=== PATIENT | female | born 1945 | race Caucasian/White ===

== ENCOUNTER 2023-04-13 22:32 | Inpatient (IN) | payer MEDICARE, OTHER ==
[~2023-04-13] VITALS: Ht 149.9 cm; Wt 50.3 kg
--- NOTE | 2023-04-13 22:45 | NUR ---
[facility]FULL[facility], NAUSEA AND CONSTIPATION. PT IS AAO X 4, BREATHING UNLABORED, SATURATION AT 99% ON ROOM AIR. PT STATES SHE GETS NAUSEATED AFTER ABOUT 3 BITES SO SHE THINKS SHE MAY HAVE LOST WEIGHT. PT ATTACHED TO MONITOR AND PULSE OX. AWAITING MD ELIZABETH.
--- NOTE | 2023-04-13 22:55 | NUR ---
urine collected, sent to lab
--- NOTE | 2023-04-13 22:57 | NUR ---
Oil Refinery Process Technician at bedside
[2023-04-13 23:39] LABS: BILIRUBIN,URINE NEGATIVE (NEGATIVE); COLOR,URINE YELLOW (YELLOW); LEUKOCYTE ESTERASE ,URINE 1+ (NEGATIVE); NITRITE, URINE NEGATIVE (NEGATIVE); PH,URINE 5.5 (5.0-8.0); PROTEIN,URINE NEGATIVE (NEGATIVE); UGLUCOSE NEGATIVE (NEGATIVE); UROBILINOGEN,URINE 0.2 EU/dL (0.2)
[2023-04-13 23:39] LABS: BASOPHILS # (AUTO) 0.1 K/uL (0.0-0.2); BASOPHILS % (AUTO) 1.2 % (0.0-2.0); EOSINOPHILS % (AUTO) 3.5 % (0.0-6.0); HEMATOCRIT 35 % (33-45); HEMOGLOBIN 11.4 g/dL (11.5-14.8); LYMPHOCYTES # (AUTO) 1.1 K/uL (0.8-4.8); LYMPHOCYTES % (AUTO) 21.5 % (20.0-44.0); MEAN CORPUSCULAR HGB CONC 33 g/dl (31.0-36.0); MEAN CORPUSCULAR VOLUME 87 fL (82-100); MONOCYTES # (AUTO) 0.5 K/uL (0.1-1.30); MONOCYTES % (AUTO) 9.3 % (2.0-12.0); NEUTROPHILS # (AUTO) 3.3 K/uL (1.8-8.9); NEUTROPHILS % (AUTO) 64.5 % (43.0-81.0); PLATELET COUNT (AUTO) 229 K/uL (150-450); RED BLOOD CELL COUNT(AUTO) 3.97 MIL/uL (4.0-5.2); WHITE BLOOD COUNT (AUTO) 5.1 K/uL (4.3-11.0)
[2023-04-13 23:46] LABS: CALCIUM, SERUM 9.4 mg/dL (8.5-10.1); CARBON DIOXIDE 24 mmol/L (21-32); CHLORIDE 102 mmol/L (98-107); CREATININE 1.6 mg/dL (0.6-1.3); GLUCOSE 106 mg/dL (74-106); POTASSIUM 4.6 mmol/L (3.5-5.1); SODIUM SERUM 138 mmol/L (136-145); UREA NITROGEN, BLOOD 62 mg/dL (7-18)
[2023-04-13 23:46] LABS: BACTERIA,URINE None seen /HPF (None Seen)
[2023-04-13] MEDS ORDERED: CEFTRIAXONE 1GM BAG (ER ONLY) 50 ML IV ONE (23:55)
[2023-04-14] MEDS ORDERED: CEFTRIAXONE 1GM BAG (ER ONLY) 1 GM/50 ML PIGGYBACK IV ONE
[2023-04-14 00:02] LABS: ALANINE AMINOTRANSFERASE 27 U/L (12-78); ALBUMIN 3.4 g/dL (3.4-5.0); ALKALINE PHOSPHATASE 98 U/L (46-116); ASPARTATE AMINOTRANSFERASE 47 U/L (15-37); BILIRUBIN,DIRECT 0.1 mg/dL (0.0-0.2); BILIRUBIN,TOTAL 0.6 mg/dL (0.2-1.0); LIPASE 187 U/L (73-393); TOTAL PROTEIN, SERUM 7.7 g/dL (6.4-8.2)
[2023-04-14] MEDS ORDERED: KETOROLAC TROMETHAMINE INJ 30 MG/ML VIAL IV ONE (00:30)
[2023-04-14] MEDS ORDERED: KETOROLAC TROMETHAMINE 15 MG/ML VIAL ONE (00:33)
--- NOTE | 2023-04-14 01:14 | NUR ---
MOVE SHEET GIVEN TO ADMITTING
[2023-04-14] MEDS ORDERED: IV NS 0.9% 1,000 ML IV ONE (01:30)
[2023-04-14] MEDS ORDERED: hydrALAZINE HCL IV 20 MG VIAL IV PRN (02:30)
[2023-04-14] MEDS ORDERED: ACETAMINOPHEN 325 MG TABLET PO PRN (02:30)
[2023-04-14] MEDS ORDERED: MORPHINE SULFATE INJ 2 MG/ML DISP.SYRIN IV PRN ×2 (02:30→07:00)
--- NOTE | 2023-04-14 03:18 | NUR ---
RM 313-2
--- NOTE | 2023-04-14 03:28 | NUR ---
REPORT GIVEN TO RN MAY
--- NOTE | 2023-04-14 03:43 | NUR ---
pt taken to ct via kirstin
--- NOTE | 2023-04-14 04:22 | NUR ---
PT TRANSFERRED TO MS 313-2 VIA BLS PROTOCOL. VS WNL.
[2023-04-14 04:45] VITALS: BP 153/81; TEMP 98.4; O2SAT 100
--- NOTE | 2023-04-14 04:45 | NUR ---
MS ADVERTISING SALES ASSISTANT NOTE PATIENT IS BEING TRANSPORTED TO THE UNIT FROM ER ON A GURNEY. SHE IS ON RA, TOLERATED WELL. NO S/S OF DISTRESS OR SOB. PT IS ALERT AND ORIENTED, AO X 4. SHE HAS IV ACCESS AT HER R FA, #24G, SL. FLUSHED WELL WITH 10 CC OF NS. PT DENIES OF HAVING PAIN AT THIS MOMENT. SAFETY MEASURES ARE IN PLACED: BED IN LOWEST AND LOCKED POSITION; SIDE RAILS UP X 2; CALL LIGHT AND TABLE ARE IN REACH. WILL CONTINUE MONITORING THE PT AND PROVIDE THE CARE PT NEEDS.
[2023-04-14] MEDS: IV NS 0.9% 1,000 ML IV SCH ×2 (07:02→16:02)
[2023-04-14] MEDS: ZOSYN IVPB 2.25 G in IV D5W 50ml IV SCH ×3 (07:15→21:12)
--- NOTE | 2023-04-14 07:25 | NUR ---
MS RN OPENING NOTES RECEIVED PATIENT IN BED AWAKE AND VERBALLY RESPONSIVE . ON RA, TOLERATED WELL. NO S/S OF DISTRESS OR SOB. PT IS AO X 4. NO C/O OF PAIN AND DISCOMFORT SHE HAS IV ACCESS AT HER R FA, #24G, WITRH NS @ 75 ML / HR . IV SITE IS PATENT AND INTACT . SAFETY MEASURES ARE IN PLACED: BED IN LOWEST AND LOCKED POSITION; SIDE RAILS UP X 2; CALL LIGHT AND TABLE ARE IN REACH. WILL CONTINUE TO MONITOR .
--- NOTE | 2023-04-14 07:33 | NUR ---
MS RN CLOSING NOTE PATIENT IS RESTING IN BED. SHE IS ON RA, TOLERATED WELL. NO S/S OF DISTRESS OR SOB. PT IS AWAKE, ALERT AND ORIENTED, AO X 4. SHE HAS IV ACCESS AT HER R FA, #24G, INFUSING ANTIBIOTICS NOW. IV SITE IS PATENT AND INTACT. PT DENIES OF HAVING PAIN AT THIS MOMENT. SAFETY MEASURES ARE IN PLACED: BED IN LOWEST AND LOCKED POSITION; SIDE RAILS UP X 2; CALL LIGHT AND TABLE ARE IN REACH. WILL ENDORSE NEXT SHIFT NURSE FOR CONTINUING PT CARE.
[2023-04-14 08:44] VITALS: BP_SYST 131; BP_SYST 132; BP_DIAS 65; BP_DIAS 72; TEMP 97.8; TEMP 98.4; O2SAT 100; O2SAT 96
[2023-04-14] MEDS ORDERED: PANTOPRAZOLE 40 MG VIAL IV SCH (11:00)
[2023-04-14 16:57] VITALS: BP 121/61; TEMP 97.5; O2SAT 97
--- NOTE | 2023-04-14 18:36 | NUR ---
MS RN CLOSING NOTES PATIENT IN BED AWAKE AND VERBALLY RESPONSIVE . ON RA, TOLERATED WELL. NO S/S OF DISTRESS OR SOB. PT IS AO X 4. NO C/O OF PAIN AND DISCOMFORT SHE HAS IV ACCESS AT HER R FA, #24G, WITH NS @ 75 ML / HR . IV SITE IS PATENT AND INTACT . ALL DUE MEDS GIVEN ORDERED , HAD BOWEL MOVEMENT , SAFETY MEASURES ARE IN PLACED: BED IN LOWEST AND LOCKED POSITION; SIDE RAILS UP X 2; CALL LIGHT AND TABLE ARE IN REACH. ENDORSED TO DIGITAL SALES PLANNER NURSE .
--- NOTE | 2023-04-14 19:05 | NUR ---
MS RN OPENING NOTE PATIENT IS RESTING IN BED. SHE IS ON RA, TOLERATED WELL. NO S/S OF DISTRESS OR SOB. PT IS AWAKE, ALERT AND ORIENTED, AO X 4. SHE HAS IV ACCESS AT HER R FA, #24G, INFUSING NS @75 ML/HR. IV SITE IS PATENT AND INTACT. PT DENIES OF HAVING PAIN AT THIS MOMENT. SAFETY MEASURES ARE IN PLACED: BED IN LOWEST AND LOCKED POSITION; SIDE RAILS UP X 2; CALL LIGHT AND TABLE ARE IN REACH. WILL CONTINUE MONITORING THE PT AND PROVIDE THE CARE PT NEEDS.
[2023-04-14 20:00] VITALS: BP 119/63; TEMP 98.3; O2SAT 98
--- NOTE | 2023-04-14 23:53 | NUR ---
MS RN NOTE PT CALLED ME TO HER BEDSIDE, AND PRESSURED HER ROOMMATE TO TELL ME THAT SHE WAS TREATED LESS RESPECTFUL COMPARE WITH HER ROOMMATE. HER ROOMMATE DID NOT SAY ANYTHING ABOUT THIS ISSUE FURTHERMORE, SHE KEPT PRESSURING HER ROOMMATE TO SAY THAT "NURSES TREAT YOU BETTER THAN ME". HER ROOMMATE DID NOT SAY ANYTHING ABOUT THE ISSUE PT BROUGHT UP; AND STATED "I AM SO TIRED AND WANT TO SLEEP". I TRIED TO CLOSE THE CURTAIN BETWEEN THE TWO PATIENTS SO THEY COULD HAVE SOME PRIVACY; HOWEVER, MARISOL SPAIN REFUSED TO LET ME CLOSE THE CURTAIN AND STATED THAT THEY COULD TALK EASILY THIS WAY. CHARGE NURSE, TERRI, NOTIFIED.
--- NOTE | 2023-04-15 | NUR ---
MS RN NOTE LISTENED TO PT'S CONCERN AND DISCUSSED WITH THE PT. LET THE PT KNOW THAT SHE CAN ALWAYS DIRECTLY TALK TO US REGARDING HER NEEDS AND EXPECTATIONS. WE WILL TRY OUR BEST TO PROVIDE THE CARE SHE NEEDS. PT VERBALIZED UNDERSTANDING AND STATED THAT SHE WOULD MAKE DIRECT REQUEST IF SHE NEEDS ANYTHING.
[2023-04-15] MEDS: ZOSYN IVPB 2.25 G in IV D5W 50ml IV SCH ×3 (04:21→21:01)
[2023-04-15] MEDS: IV NS 0.9% 1,000 ML IV SCH (04:21)
[2023-04-15 07:04] LABS: BASOPHILS # (AUTO) 0.1 K/uL (0.0-0.2); BASOPHILS % (AUTO) 1.3 % (0.0-2.0); EOSINOPHILS % (AUTO) 6.9 % (0.0-6.0); HEMATOCRIT 33 % (33-45); HEMOGLOBIN 10.7 g/dL (11.5-14.8); LYMPHOCYTES # (AUTO) 1.1 K/uL (0.8-4.8); LYMPHOCYTES % (AUTO) 24.5 % (20.0-44.0); MEAN CORPUSCULAR HGB CONC 32 g/dl (31.0-36.0); MEAN CORPUSCULAR VOLUME 88 fL (82-100); MONOCYTES # (AUTO) 0.5 K/uL (0.1-1.30); NEUTROPHILS # (AUTO) 2.5 K/uL (1.8-8.9); NEUTROPHILS % (AUTO) 55.3 % (43.0-81.0); PLATELET COUNT (AUTO) 174 K/uL (150-450); WHITE BLOOD COUNT (AUTO) 4.5 K/uL (4.3-11.0)
[2023-04-15] MEDS ORDERED: IV NS 0.9% 1,000 ML IV PRN (07:30)
--- NOTE | 2023-04-15 07:38 | NUR ---
MS RN CLOSING NOTE PATIENT IS RESTING IN BED. SHE IS ON RA, TOLERATED WELL. NO S/S OF DISTRESS OR SOB. PT IS AWAKE, ALERT AND ORIENTED, AO X 4. SHE HAS IV ACCESS AT HER R FA, #24G, INFUSING NS @75 ML/HR. IV SITE IS PATENT AND INTACT. PT DENIES OF HAVING PAIN AT THIS MOMENT. SAFETY MEASURES ARE IN PLACED: BED IN LOWEST AND LOCKED POSITION; SIDE RAILS UP X 2; CALL LIGHT AND TABLE ARE IN REACH. ENDORSED NEXT SHIFT NURSE FOR CONTINUING PT CARE.
[2023-04-15 07:47] LABS: ALANINE AMINOTRANSFERASE 18 U/L (12-78); ALBUMIN 2.6 g/dL (3.4-5.0); ALKALINE PHOSPHATASE 80 U/L (46-116); ASPARTATE AMINOTRANSFERASE 35 U/L (15-37); BILIRUBIN,TOTAL 0.6 mg/dL (0.2-1.0); CALCIUM, SERUM 8.5 mg/dL (8.5-10.1); CARBON DIOXIDE 20 mmol/L (21-32); CHLORIDE 108 mmol/L (98-107); CREATININE 1.5 mg/dL (0.6-1.3); GLUCOSE 88 mg/dL (74-106); PHOSPHORUS 3.8 mg/dL (2.5-4.9); POTASSIUM 4.2 mmol/L (3.5-5.1); SODIUM SERUM 137 mmol/L (136-145); TOTAL PROTEIN, SERUM 6.4 g/dL (6.4-8.2); UREA NITROGEN, BLOOD 34 mg/dL (7-18)
[2023-04-15 08:00] VITALS: BP 123/66; TEMP 97.7; O2SAT 100
[2023-04-15] MEDS: PANTOPRAZOLE 40 MG TABLET.DR PO SCH (09:00)
[2023-04-15] MEDS ORDERED: MULT-213 PO (15:27)
[2023-04-15] MEDS ORDERED: CRAN500T3 PO (15:27)
[2023-04-15] MEDS ORDERED: CHOL400T11 PO (15:27)
[2023-04-15] MEDS ORDERED: ONDA4TAB5 PO (15:27)
[2023-04-15] MEDS ORDERED: DOCU100C36 PO (15:27)
[2023-04-15] MEDS ORDERED: IPRA0.2S49 IH (15:27)
[2023-04-15] MEDS ORDERED: NORM210S TP (15:27)
[2023-04-15] MEDS ORDERED: FAMO-130 PO (15:27)
[2023-04-15] MEDS ORDERED: ZINC56.713 TP (15:27)
[2023-04-15] MEDS ORDERED: METO-295 PO (15:27)
[2023-04-15] MEDS ORDERED: HYDR-500 PO (15:27)
[2023-04-15] MEDS ORDERED: ALBU2.5V38 NEB (15:27)
[2023-04-15] MEDS ORDERED: ACET-2605 PO (15:27)
[2023-04-15] MEDS ORDERED: ESCI5TAB PO (15:27)
[2023-04-15] MEDS ORDERED: METO25TA6 PO (15:27)
[2023-04-15 16:00] VITALS: BP 123/67; TEMP 98.1; O2SAT 100
--- NOTE | 2023-04-15 18:47 | NUR ---
CLOSING NOTE PATIENT AWAKE A/OX4 ON ROOM AIR, WITH NO S/S OF SOB OR DISTRESS. DENIES PAIN AT THIS TIME. ABLE TO MAKE NEEDS KNOWN. THROUGHOUT SHIFT COMPLAINT AND COOPERATIVE TO CARE. REQUIRES REORIENTATION AND DEESCALATION WHEN PATIENT FEELS AGITATED. RECEPTIVE TO EDUCATION AND REDIRECTION. MEDICATION ADMINISTRATED MD ORDER/ PER PT STATUS. IV ACCESS RFA G24 D/C, NEW IV R WRIST G 22 INTACT AND PATENT RUNNING NS 75ML/HR. FALL AND SAFETY PRECAUTION MAINTAINED: BED LOCKED AND AT THE LOWEST POSITION, SRx2, CALL LIGHT WITHIN REACH.
--- NOTE | 2023-04-15 20:00 | NUR ---
MS RN OPENING NOTE PATIENT AWAKE IN BED, ALERT/ORIENTED X 3, PT ABLE TO MAKE NEEDS KNOWN. PATIENT STABLE ON RA, NO S/S OF DISTRESS OR SOB NOTED, BREATHING EVEN AND UNLABORED. IV ACCESS ON RIGHT WRIST #22G INTACT AND INFUSING NS @ 75 ML/HR. SAFETY MEASURES IN PLACE: CALL LIGHT WITHIN REACH, SIDE RAILS UP X 2, BED LOCKED IN LOWEST POSITION, HOB ELEVATED, BED ALARM ON. WILL CONTINUE TO MONITOR PATIENT
[2023-04-15 20:47] VITALS: BP 102/53; TEMP 97.9; O2SAT 97
[2023-04-16] MEDS: ZOSYN IVPB 2.25 G in IV D5W 50ml IV SCH ×3 (05:07→20:24)
--- NOTE | 2023-04-16 06:33 | NUR ---
MS RN CLOSING NOTE PATIENT AWAKE IN BED, ALERT/ORIENTED X 3, BUT FORGETFUL AT TIMES, PT ABLE TO MAKE NEEDS KNOWN. PATIENT STABLE ON RA, NO S/S OF DISTRESS OR SOB NOTED, BREATHING EVEN AND UNLABORED. IV ACCESS ON RIGHT WRIST #22G INTACT AND INFUSING NS @ 75 ML/HR. NO SIGNIFICANT CHANGES THIS SHIFT, PT SLEPT WELL, MEDICATIONS GIVEN ORDERED, PT NEEDS MET. SAFETY MEASURES IN PLACE: CALL LIGHT WITHIN REACH, SIDE RAILS UP X 2, BED LOCKED IN LOWEST POSITION, HOB ELEVATED, BED ALARM ON. WILL ENDORSE TO DAYSHIFT RN FOR CONTINUITY OF CARE
[2023-04-16 07:34] LABS: BASOPHILS # (AUTO) 0.1 K/uL (0.0-0.2); BASOPHILS % (AUTO) 1.3 % (0.0-2.0); EOSINOPHILS % (AUTO) 8.7 % (0.0-6.0); HEMATOCRIT 31 % (33-45); HEMOGLOBIN 10.2 g/dL (11.5-14.8); LYMPHOCYTES # (AUTO) 1.3 K/uL (0.8-4.8); LYMPHOCYTES % (AUTO) 24.5 % (20.0-44.0); MEAN CORPUSCULAR HGB CONC 33 g/dl (31.0-36.0); MEAN CORPUSCULAR VOLUME 87 fL (82-100); MONOCYTES # (AUTO) 0.5 K/uL (0.1-1.30); MONOCYTES % (AUTO) 10.1 % (2.0-12.0); NEUTROPHILS # (AUTO) 2.9 K/uL (1.8-8.9); NEUTROPHILS % (AUTO) 55.4 % (43.0-81.0); PLATELET COUNT (AUTO) 166 K/uL (150-450); RED BLOOD CELL COUNT(AUTO) 3.58 MIL/uL (4.0-5.2); WHITE BLOOD COUNT (AUTO) 5.2 K/uL (4.3-11.0)
[2023-04-16 07:55] LABS: CALCIUM, SERUM 8.6 mg/dL (8.5-10.1); CARBON DIOXIDE 19 mmol/L (21-32); CHLORIDE 109 mmol/L (98-107); CREATININE 1.6 mg/dL (0.6-1.3); GLUCOSE 103 mg/dL (74-106); POTASSIUM 4.5 mmol/L (3.5-5.1); SODIUM SERUM 139 mmol/L (136-145); UREA NITROGEN, BLOOD 30 mg/dL (7-18)
--- NOTE | 2023-04-16 08:13 | NUR ---
RN OPENING NOTES 313-2 RECEIVED PATIENT RESTFUL IN BED,BREATHING WELL ON ROOM AIR,EVENLY AND UNLABORED. NO SIGNS OF DISCOMFORT/PAIN NOTED OR VERBALIZED AT THE MOMENT,.PATIENT IS A&O x3 ,SHE IS ALSO ABLE TO MAKE NEEDS KNOWN TO STAFF. PATIENT HAS AN IV ACCESS RFA 22G INTACT,&XU OF 0.9 NS IN GOOD PROGRESS .ON SKIN ASSESSMENT,ARM BRUISES ON BOTH HANDS NOTED. FALL AND SAFETY MEASURES IN PLACE,BED IN A LOWER POSITION AND LOCKED,BED RAILS UP x3 ,CALL LIGHT AND TABLE WITHIN REACH. NO ISSUES RAISED,LEFT COMFORTABLE IN BED.CONTINUES TO MONITOR PATIENT THROUGH OUT SHIFT &HOURLY ROUNDING/PRN
[2023-04-16 08:30] VITALS: BP 119/64; TEMP 98.2; O2SAT 99
[2023-04-16] MEDS: PANTOPRAZOLE 40 MG TABLET.DR PO SCH (09:20)
[2023-04-16] MEDS ORDERED: IPRATROPIUM NEB FS 0.5 MG/2.5 ML AMPUL.NEB IH PRN (15:30)
[2023-04-16] MEDS ORDERED: ALBUTEROL FS 2.5 MG/3 ML VIAL.NEB NEB PRN (15:30)
[2023-04-16 16:00] VITALS: BP 99/56; TEMP 98.2; O2SAT 99
[2023-04-16] MEDS: METOPROLOL TARTRATE 25 MG TABLET PO SCH ×2 (17:00→17:29)
[2023-04-16] MEDS: METOCLOPRAMIDE HCL 10 MG TABLET PO SCH (17:41)
--- NOTE | 2023-04-16 18:39 | NUR ---
RN CLOSING NOTES PATIENT RESTFUL IN BED,BREATHING WELL ON ROOM AIR,EVENLY AND UNLABORED. NO SIGNS OF DISCOMFORT/PAIN NOTED OR VERBALIZED AT THE MOMENT,.PATIENT IS A&O x3 PATIENT HAS AN IV ACCESS RFA 22G INTACT & SALINE LOCKED FALL AND SAFETY MEASURES IN PLACE,BED IN A LOWER POSITION AND LOCKED,BED RAILS UP x3 ,CALL LIGHT AND TABLE WITHIN REACH. NO ISSUES RAISED,LEFT COMFORTABLE IN BED.WILL ENDORSE TO THE ROOM DESIGNER NURSE
--- NOTE | 2023-04-16 19:30 | NUR ---
MS RN OPENING NOTE RECEIVED PATIENT IN BED,WITH HOB ELEVATED, ALERT AND ORIENTED X3. AFEBRILE AND NOT IN ANY FORM OF ACUTE DISTRESS. BREATHING EVEN AND NON LABORED. NO C/O PAIN OR DISCOMFORT AT THIS TIME. WITH IV ACCESS ON R WRIST 22G RUNNING WITH NS AT 75ML/HR. SAFETY MEASURES IN PLACE. KEPT BED IN LOCKED AND IN LOW POSITION. SIDE RAILS UP X2. ADVISED TO USE THE CALL LIGHT WHEN IN NEED OF ASSISTANCE.
[2023-04-16 20:00] VITALS: BP 96/57; TEMP 98.1; O2SAT 98
[2023-04-17] MEDS: ZOSYN IVPB 2.25 G in IV D5W 50ml IV SCH (04:24)
--- NOTE | 2023-04-17 06:30 | NUR ---
313-2 MS RN CLOSING NOTE PATIENT IN BED,WITH HOB ELEVATED, ASLEEP BUT EASY TO AROUSE AND RESPONSIVE. ALERT AND ORIENTED X3. AFEBRILE AND NOT IN ANY FORM OF ACUTE DISTRESS. BREATHING EVEN AND NON LABORED. NO C/O PAIN OR DISCOMFORT THROUGHOUT THE SHIFT. WITH IV ACCESS ON R WRIST 22G RUNNING WITH NS AT 75ML/HR. MEDICATED ORDERED. CONTINUOUS ON IV ATB, MONITORED FOR ANY ADVERSE REACTION. SAFETY MEASURES IN PLACE. KEPT BED IN LOCKED AND IN LOW POSITION. SIDE RAILS UP X2. ADVISED TO USE THE CALL LIGHT WHEN IN NEED OF ASSISTANCE. ALL NURSING NEEDS ATTENDED. ENDORSED TO INCOMING SHIFT FOR CONTINUITY OF CARE.
[2023-04-17 07:09] LABS: BASOPHILS # (AUTO) 0.1 K/uL (0.0-0.2); BASOPHILS % (AUTO) 1.1 % (0.0-2.0); EOSINOPHILS % (AUTO) 7.5 % (0.0-6.0); HEMATOCRIT 29 % (33-45); HEMOGLOBIN 9.7 g/dL (11.5-14.8); LYMPHOCYTES # (AUTO) 1.3 K/uL (0.8-4.8); LYMPHOCYTES % (AUTO) 24.2 % (20.0-44.0); MEAN CORPUSCULAR HGB CONC 33 g/dl (31.0-36.0); MEAN CORPUSCULAR VOLUME 86 fL (82-100); MONOCYTES # (AUTO) 0.5 K/uL (0.1-1.30); MONOCYTES % (AUTO) 8.7 % (2.0-12.0); NEUTROPHILS # (AUTO) 3.2 K/uL (1.8-8.9); NEUTROPHILS % (AUTO) 58.5 % (43.0-81.0); PLATELET COUNT (AUTO) 162 K/uL (150-450); WHITE BLOOD COUNT (AUTO) 5.4 K/uL (4.3-11.0)
--- NOTE | 2023-04-17 08:02 | NUR ---
MS RN OPENING NOTES RECEIVED PATIENT RESTFUL IN BED,BREATHING WELL ON ROOM AIR,EVENLY AND UNLABORED. NO SIGNS OF DISCOMFORT/PAIN NOTED OR VERBALIZED AT THE MOMENT,.PATIENT IS A&O x3 ,SHE IS ALSO ABLE TO MAKE NEEDS KNOWN TO STAFF. PATIENT HAS NO IV ACCESS CURRENTLY. ON SKIN ASSESSMENT,ARM BRUISES ON BOTH HANDS NOTED. FALL AND SAFETY MEASURES IN PLACE,BED IN A LOWER POSITION AND LOCKED,BED RAILS UP x3 ,CALL LIGHT AND TABLE WITHIN REACH. NO ISSUES RAISED,LEFT COMFORTABLE IN BED.CONTINUES TO MONITOR PATIENT THROUGH OUT SHIFT &HOURLY ROUNDING/PRN
[2023-04-17 08:28] LABS: CALCIUM, SERUM 8.7 mg/dL (8.5-10.1); CARBON DIOXIDE 20 mmol/L (21-32); CHLORIDE 109 mmol/L (98-107); CREATININE 1.5 mg/dL (0.6-1.3); GLUCOSE 99 mg/dL (74-106); MAGNESIUM 1.8 mg/dL (1.8-2.4); PHOSPHORUS 3.3 mg/dL (2.5-4.9); POTASSIUM 4.4 mmol/L (3.5-5.1); SODIUM SERUM 142 mmol/L (136-145); UREA NITROGEN, BLOOD 30 mg/dL (7-18)
[2023-04-17 08:30] VITALS: BP 136/76; TEMP 97.6; O2SAT 96
[2023-04-17] MEDS: ESCITALOPRAM OXALATE (10 MG) 10 MG TABLET PO SCH ×2 (09:00→09:36)
[2023-04-17] MEDS: METOCLOPRAMIDE HCL 10 MG TABLET PO SCH ×4 (09:00→16:47)
[2023-04-17] MEDS: METOPROLOL TARTRATE 25 MG TABLET PO SCH ×3 (09:00→16:45)
[2023-04-17] MEDS ORDERED: Medication Not On Formulary EA (Cranberry Extract (Cranberry) 500 MG) PO SCH (09:00)
--- NOTE | 2023-04-17 09:30 | NUR ---
RN NOTE PATIENT CHANGED HER MIND ABOUT TAKING MEDICATION,SHE SAID SHE DOES NOT FEEL NAUSEATED AND SHE WILL ASK FOR THE ANTINAUSEA MED WHEN SHE NEEDS IT,SHE ALSO VERBALIZED,"I HAVE BEEN SAYING OVER AND OVER I DONT WANT THE ANTIANXIETY/ANTIDEPRESSANT PILLS,IM NOT DEPRESSED DO I LOOK DEPRESSED TO YOU SRIDEVI,PLEASE TELL THE DOCTOR TO STOP THE MEDICATION,I DONT TAKE THEM EVEN IN MY FACILITY.SHE ALSO ADDED THAT SHE DIDNT WANT TO TAKE HER BLOOD PRESSURE MED. RISKS AND BENEFIT EXPLAINED TO PATIENT BUT SHE STILL DECLINED ANYWAY,CONTINUES WITH CURRENT PLAN OF CARE AND ROUNDING HOURLY/PRN
[2023-04-17] MEDS: MULTIVIT W/MINERALS 1 TAB TABLET PO SCH (09:35)
[2023-04-17] MEDS: PANTOPRAZOLE 40 MG TABLET.DR PO SCH (09:35)
[2023-04-17] MEDS: DOCUSATE SODIUM 100 MG CAPSULE PO SCH (09:35)
[2023-04-17] MEDS: CHOLECALCIFEROL (VITAMIN D 3) 400 UNIT TABLET PO SCH (09:35)
[2023-04-17] MEDS ORDERED: CIPROFLOXACIN HCL 250 MG TABLET PO SCH (10:00)
[2023-04-17] MEDS: ZINC OXIDE 30 GM TUBE TP SCH (10:10)
[2023-04-17] MEDS: METRONIDAZOLE 500 MG TABLET PO SCH ×2 (12:56→21:04)
[2023-04-17 16:00] VITALS: BP 127/53; TEMP 97.6; O2SAT 96
--- NOTE | 2023-04-17 16:47 | NUR ---
RN NOTE PATIENT REFUSED THE 5PM MEDS TOO,SHE SAID SHE DOESNT FEEL NAUSEATED THAT SHE WILL ASK WHEN SHE NEEDS IT.SHE ALSO SAID 'I DONT WANT THE BLOOD PRESSURE MEDICATION I FEEL MY BLOOD PRESSURE IS OKAY" RISKS AND BENEFITS EXPLAINED TO PATIENT AND PATIENT DEMONSTRATED UNDERSTANDING BUT SHE STILL DECLINED ANYWAY.CONTINUES PLAN OF CARE AND MONITORING
--- NOTE | 2023-04-17 18:28 | NUR ---
MS RN CLOSING NOTES PATIENT RESTFUL IN BED,BREATHING WELL ON ROOM AIR,EVENLY AND UNLABORED. NO SIGNS OF DISCOMFORT/PAIN NOTED OR VERBALIZED AT THE MOMENT,.PATIENT IS A&O x3 , PATIENT HAS NO IV ACCESS CURRENTLY. ON SKIN ASSESSMENT,ARM BRUISES ON BOTH HANDS NOTED. FALL AND SAFETY MEASURES IN PLACE,BED IN A LOWER POSITION AND LOCKED,BED RAILS UP x3 ,CALL LIGHT AND TABLE WITHIN REACH. NO ISSUES RAISED,LEFT COMFORTABLE IN BED.WILL ENDORSE TO THE NIGHTSHIFT NURSE
--- NOTE | 2023-04-17 19:30 | NUR ---
MS RN OPENING NOTE RECEIVED PATIENT IN BED, ALERT AND ORIENTED X3. ABLE TO MAKE NEEDS KNOWN. AFEBRILE AND NOT IN ANY FORM OF ACUTE DISTRESS. BREATHING EVEN AND NON LABORED. WITH IV ACCESS ON LYNDSAY MIDLINE-SL. SAFETY MEASURES IN PLACE. KEPT BED IN LOCKED AND IN LOW POSITION. SIDE RAILS UP X2. ADVISED TO USE THE CALL LIGHT WHEN IN NEED OF ASSISTANCE.
[2023-04-17] MEDS: CIPROFLOXACIN HCL 500 MG TABLET PO SCH (21:05)
[2023-04-18 00:07] VITALS: BP 126/54; TEMP 98; O2SAT 100
[2023-04-18] MEDS: METRONIDAZOLE 500 MG TABLET PO SCH ×3 (04:39→21:00)
[2023-04-18] MEDS: ONDANSETRON HCL/PF 4 MG/2 ML VIAL IVP PRN ×3 (05:26→22:05)
--- NOTE | 2023-04-18 06:30 | NUR ---
MS RN CLOSING NOTE PATIENT IN BED, ASLEEP BUT EASY TO AROUSE AND RESPONSIVE. ALERT AND ORIENTED X3. ABLE TO MAKE NEEDS KNOWN. AFEBRILE AND NOT IN ANY FORM OF ACUTE DISTRESS. BREATHING EVEN AND NON LABORED. WITH IV ACCESS ON LYNDSAY MIDLINE RUNNING WITH NS AT 75ML/HR. MEDICATED ORDERED. ON PO ATB, MONITORED FOR ANY ADVERSE REACTION. SAFETY MEASURES IN PLACE. KEPT BED IN LOCKED AND IN LOW POSITION. SIDE RAILS UP X2. ADVISED TO USE THE CALL LIGHT WHEN IN NEED OF ASSISTANCE. ALL NURSING NEEDS ATTENDED. ENDORSED TO INCOMING SHIFT FOR CONTINUITY OF CARE.
[2023-04-18 07:30] VITALS: BP 146/54; TEMP 97.4; O2SAT 99
--- NOTE | 2023-04-18 07:35 | NUR ---
RN OPENING NOTE RECEIVED PATIENT IN BED, ALERT AND ORIENTED X3. ABLE TO MAKE NEEDS KNOWN, NO COMPLAIN OF PAIN OR DISCOMFORT AT THIS TIME. ON ROOM AIR BREATHING EVEN AND UNLABORED, NO SOB OR DISTRESS NOTED. WITH IV ACCESS ON EDDI MIDLINE-SL. SAFETY MEASURES IN PLACE: BED IN LOWEST LOCKED POSITION, SIDE RAILS UP X2, CALL LIGHT WITHIN REACH. WILL CONTINUE TO MONITOR.
[2023-04-18] MEDS: ESCITALOPRAM OXALATE (10 MG) 10 MG TABLET PO SCH (09:00)
[2023-04-18] MEDS: METOPROLOL TARTRATE 25 MG TABLET PO SCH ×2 (09:00→17:00)
[2023-04-18] MEDS: CIPROFLOXACIN HCL 500 MG TABLET PO SCH ×2 (09:00→21:00)
[2023-04-18] MEDS: METOCLOPRAMIDE HCL 10 MG TABLET PO SCH ×3 (09:00→17:00)
[2023-04-18] MEDS: CHOLECALCIFEROL (VITAMIN D 3) 400 UNIT TABLET PO SCH (09:00)
[2023-04-18] MEDS: DOCUSATE SODIUM 100 MG CAPSULE PO SCH (09:00)
[2023-04-18] MEDS: ZINC OXIDE 30 GM TUBE TP SCH (09:00)
[2023-04-18] MEDS: PANTOPRAZOLE 40 MG TABLET.DR PO SCH (09:00)
[2023-04-18] MEDS: MULTIVIT W/MINERALS 1 TAB TABLET PO SCH (09:00)
[2023-04-18 09:26] LABS: BASOPHILS % (AUTO) 0.4 % (0.0-2.0); EOSINOPHILS % (AUTO) 1.9 % (0.0-6.0); HEMATOCRIT 35 % (33-45); HEMOGLOBIN 11.5 g/dL (11.5-14.8); LYMPHOCYTES # (AUTO) 0.8 K/uL (0.8-4.8); LYMPHOCYTES % (AUTO) 9.5 % (20.0-44.0); MEAN CORPUSCULAR HGB CONC 33 g/dl (31.0-36.0); MEAN CORPUSCULAR VOLUME 89 fL (82-100); MONOCYTES # (AUTO) 0.3 K/uL (0.1-1.30); NEUTROPHILS # (AUTO) 6.9 K/uL (1.8-8.9); NEUTROPHILS % (AUTO) 84.2 % (43.0-81.0); PLATELET COUNT (AUTO) 180 K/uL (150-450); RED BLOOD CELL COUNT(AUTO) 3.99 MIL/uL (4.0-5.2); WHITE BLOOD COUNT (AUTO) 8.1 K/uL (4.3-11.0)
[2023-04-18 09:40] LABS: CALCIUM, SERUM 9.3 mg/dL (8.5-10.1); CARBON DIOXIDE 19 mmol/L (21-32); CHLORIDE 106 mmol/L (98-107); CREATININE 1.5 mg/dL (0.6-1.3); GLUCOSE 142 mg/dL (74-106); MAGNESIUM 1.8 mg/dL (1.8-2.4); PHOSPHORUS 3.3 mg/dL (2.5-4.9); POTASSIUM 3.8 mmol/L (3.5-5.1); SODIUM SERUM 139 mmol/L (136-145); UREA NITROGEN, BLOOD 28 mg/dL (7-18)
[2023-04-18] MEDS ORDERED: LORAZEPAM INJ 2 MG/ML VIAL IV ONE (11:30)
[2023-04-18] MEDS ORDERED: LORAZEPAM INJ 2 MG/ML VIAL IV PRN (13:00)
--- NOTE | 2023-04-18 15:30 | NUR ---
RN NOTE Witnesses wasting with LENNY Chung of Ativan 1.5 mg out or 2 mg.
--- NOTE | 2023-04-18 15:30 | NUR ---
RN NOTE Waste Ativan 1.5 mg out or 2 mg. witnessed by Mike Peters.
[2023-04-18 16:00] VITALS: BP 148/56; TEMP 97.5; O2SAT 99
[2023-04-18] MEDS: SODIUM BICARBONATE 650 MG TABLET PO SCH (18:00)
--- NOTE | 2023-04-18 18:25 | NUR ---
RN CLOSING NOTE PATIENT IN BED AWAKE,A/O X3, ABLE TO MAKE NEEDS KNOWN, NO COMPLAIN OF PAIN OR DISCOMFORT AT THIS TIME. ON ROOM AIR BREATHING EVEN AND UNLABORED, NO SOB OR DISTRESS NOTED. WITH IV ACCESS ON EDDI MIDLINE-SL. REFUSED TO INFUSE IV FLUIDS, NS AT 75 ML/HR. REFUSED TO TAKE ORAL MEDICATIONS, NOTIFIED DR. VEGA. PT IS NPO AFTER MIDNIGHT. ALL NEEDS ATTENDED, KEPT PT COMFORTABLE IN BED. SAFETY MEASURES IN PLACE: BED IN LOWEST LOCKED POSITION, SIDE RAILS UP X2, CALL LIGHT WITHIN REACH. WILL ENDORSE TO REFRIGERATION INSULATOR.
--- NOTE | 2023-04-18 19:38 | NUR ---
RN OPENING NOTE PATIENT IS ASLEEP IN BED. A/OX3. NO S/S OF DISTRESS, BREATHING WITHOUT DIFFICULTY ON ROOM AIR. EDDI MIDLINE #18 INTACT AND PATENT WITH NS 75ML/HR. SAFETY MEASURES IN PLACE: BED LOCKED AND AT LOWEST POSITION, RAILS UP X2, CALL CASTELLANOS WITHIN REACH. WILL CONTINUE TO MONITOR PATIENT.
[2023-04-19] MEDS: METRONIDAZOLE 500 MG TABLET PO SCH ×3 (04:12→20:34)
[2023-04-19 05:49] LABS: BASOPHILS % (AUTO) 0.1 % (0.0-2.0); HEMATOCRIT 31 % (33-45); HEMOGLOBIN 10.1 g/dL (11.5-14.8); LYMPHOCYTES # (AUTO) 0.8 K/uL (0.8-4.8); LYMPHOCYTES % (AUTO) 7.5 % (20.0-44.0); MEAN CORPUSCULAR HGB CONC 33 g/dl (31.0-36.0); MEAN CORPUSCULAR VOLUME 86 fL (82-100); MONOCYTES # (AUTO) 0.6 K/uL (0.1-1.30); MONOCYTES % (AUTO) 5.3 % (2.0-12.0); NEUTROPHILS # (AUTO) 9.7 K/uL (1.8-8.9); NEUTROPHILS % (AUTO) 87.1 % (43.0-81.0); PLATELET COUNT (AUTO) 198 K/uL (150-450); RED BLOOD CELL COUNT(AUTO) 3.58 MIL/uL (4.0-5.2); WHITE BLOOD COUNT (AUTO) 11.1 K/uL (4.3-11.0)
[2023-04-19 06:09] LABS: CALCIUM, SERUM 9.1 mg/dL (8.5-10.1); CARBON DIOXIDE 21 mmol/L (21-32); CHLORIDE 108 mmol/L (98-107); GLUCOSE 122 mg/dL (74-106); MAGNESIUM 1.7 mg/dL (1.8-2.4); POTASSIUM 4.3 mmol/L (3.5-5.1); SODIUM SERUM 140 mmol/L (136-145); UREA NITROGEN, BLOOD 26 mg/dL (7-18)
--- NOTE | 2023-04-19 06:44 | NUR ---
RN CLOSING NOTE PATIENT AWAKE IN BED. A/OX3. NO S/S OF DISTRESS, BREATHING WITHOUT DIFFICULTY ON ROOM AIR. EDDI MIDLINE #18 INTACT AND PATENT W/ NS 75ML/HR. SAFETY MEASURES IN PLACE: BED LOCKED AND AT LOWEST POSITION, RAILS UP X2, CALL CASTELLANOS WITHIN REACH. WILL ENDORSE TO NEXT SHIFT FOR YOVANI.
--- NOTE | 2023-04-19 07:27 | NUR ---
RN OPENING NOTE RECEIVED PATIENT AWAKE IN BED, A/O X4, ABLE TO MAKE NEEDS KNOWN. ON ROOM AIR SATURATING WELL, BREATHING EVENLY AND UNLABORED, NO SOB OR DISTRESS NOTED, PT HAS NO COMPLAINS OF PAIN OR NAUSEA AT THIS TIME. PT IS ON NPO. PT HAS IV ACCESS ON LEFT UPPER ARM ML #18G, WITH NS AT 75 ML/HR. SAFETY PRECAUTION IN PLACE: BED IN LOWEST LOCKED POSITION, SIDE RAILS UP X2, CALL LIGHT WITHIN REACH. WILL CONTINUE TO MONITOR.
[2023-04-19 07:30] VITALS: BP 121/58; TEMP 98.4; O2SAT 100
[2023-04-19] MEDS: MULTIVIT W/MINERALS 1 TAB TABLET PO SCH (09:00)
[2023-04-19] MEDS: CIPROFLOXACIN HCL 500 MG TABLET PO SCH ×2 (09:00→20:34)
[2023-04-19] MEDS: PANTOPRAZOLE 40 MG TABLET.DR PO SCH (09:00)
[2023-04-19] MEDS: CHOLECALCIFEROL (VITAMIN D 3) 400 UNIT TABLET PO SCH (09:00)
[2023-04-19] MEDS: SODIUM BICARBONATE 650 MG TABLET PO SCH ×2 (09:00→16:45)
[2023-04-19] MEDS: METOCLOPRAMIDE HCL 10 MG TABLET PO SCH ×3 (09:00→16:45)
[2023-04-19] MEDS: ZINC OXIDE 30 GM TUBE TP SCH (09:00)
[2023-04-19] MEDS: DOCUSATE SODIUM 100 MG CAPSULE PO SCH (09:00)
[2023-04-19] MEDS: ESCITALOPRAM OXALATE (10 MG) 10 MG TABLET PO SCH (09:00)
[2023-04-19] MEDS: METOPROLOL TARTRATE 25 MG TABLET PO SCH ×2 (09:00→16:41)
[2023-04-19] MEDS ORDERED: MAGNESIUM OXIDE 400 MG TABLET PO ONE (11:00)
[2023-04-19] MEDS: IV NS 0.9% 1,000 ML IV SCH (14:21)
[2023-04-19 16:00] VITALS: BP 106/52; TEMP 98.6; O2SAT 97
--- NOTE | 2023-04-19 19:43 | NUR ---
RN CLOSING NOTE PATIENT AWAKE IN BED, A/O X4, ABLE TO MAKE NEEDS KNOWN. ON ROOM AIR SATURATING WELL, BREATHING EVENLY AND UNLABORED, NO SOB OR DISTRESS NOTED, PT HAS NO COMPLAINS OF PAIN OR NAUSEA AT THIS TIME. PT IS ON NPO. PT HAS IV ACCESS ON LEFT UPPER ARM ML #18G, WITH NS AT 75 ML/HR. ALL NEEDS ATTENDED, KEPT PT COMFORTABLE IN BED. SAFETY PRECAUTION IN PLACE: BED IN LOWEST LOCKED POSITION, SIDE RAILS UP X2, CALL LIGHT WITHIN REACH. WILL ENDORSE TO TEST FACILITY ENGINEER.
--- NOTE | 2023-04-19 19:48 | NUR ---
MS RN OPENING NOTE RECEIVED PATIENT AWAKE IN BED, AMBULATORY, A/O X4, ABLE TO MAKE NEEDS KNOWN. ON ROOM AIR SATURATING WELL, BREATHING EVENLY AND NONLABORED, NO SOB OR DISTRESS NOTED, PT HAS NO COMPLAINS OF PAIN OR NAUSEA AT THIS TIME. PT IS ON NPO AFTER MIDNIGHT FOR EGD TOMORROW MORNING. PT HAS IV ACCESS ON LEFT UPPER ARM ML #18G, WITH NS AT 75 ML/HR. KEPT PT COMFORTABLE IN BED. SAFETY PRECAUTION IN PLACE: BED IN LOWEST LOCKED POSITION, SIDE RAILS UP X2, CALL LIGHT WITHIN REACH. WILL CONTINUE TO MONITOR AND ASSIST.
[2023-04-19 20:00] VITALS: BP 109/52; TEMP 98.8; O2SAT 96
[2023-04-20 04:00] VITALS: BP 118/74; TEMP 99.2; O2SAT 98
[2023-04-20] MEDS: IV NS 0.9% 1,000 ML IV SCH ×2 (04:14→17:10)
[2023-04-20] MEDS: METRONIDAZOLE 500 MG TABLET PO SCH ×3 (05:00→21:00)
[2023-04-20 06:04] LABS: BASOPHILS % (AUTO) 0.5 % (0.0-2.0); EOSINOPHILS % (AUTO) 2.5 % (0.0-6.0); HEMATOCRIT 32 % (33-45); HEMOGLOBIN 10.3 g/dL (11.5-14.8); LYMPHOCYTES # (AUTO) 1.3 K/uL (0.8-4.8); LYMPHOCYTES % (AUTO) 15.3 % (20.0-44.0); MEAN CORPUSCULAR HGB CONC 32 g/dl (31.0-36.0); MEAN CORPUSCULAR VOLUME 89 fL (82-100); MONOCYTES # (AUTO) 0.5 K/uL (0.1-1.30); NEUTROPHILS # (AUTO) 6.3 K/uL (1.8-8.9); NEUTROPHILS % (AUTO) 75.7 % (43.0-81.0); PLATELET COUNT (AUTO) 191 K/uL (150-450); RED BLOOD CELL COUNT(AUTO) 3.62 MIL/uL (4.0-5.2); WHITE BLOOD COUNT (AUTO) 8.3 K/uL (4.3-11.0)
[2023-04-20 06:07] LABS: CALCIUM, SERUM 9.1 mg/dL (8.5-10.1); CARBON DIOXIDE 20 mmol/L (21-32); CHLORIDE 107 mmol/L (98-107); CREATININE 1.9 mg/dL (0.6-1.3); GLUCOSE 117 mg/dL (74-106); PHOSPHORUS 2.9 mg/dL (2.5-4.9); POTASSIUM 3.9 mmol/L (3.5-5.1); SODIUM SERUM 138 mmol/L (136-145); UREA NITROGEN, BLOOD 33 mg/dL (7-18)
--- NOTE | 2023-04-20 07:01 | NUR ---
MS RN CLOSING NOTES PATIENT ASLEEP IN BED, AROUSES EASILY. AMBULATORY, A/O X4, ABLE TO MAKE NEEDS KNOWN. ON ROOM AIR SATURATING WELL, BREATHING EVENLY AND NONLABORED, NO SOB OR DISTRESS NOTED, PT HAS NO COMPLAINS OF PAIN OR NAUSEA AT THIS TIME. PT IS ON NPO AFTER MIDNIGHT FOR EGD TOMORROW MORNING. PT HAS IV ACCESS ON LEFT UPPER ARM ML #18G, WITH NS AT 75 ML/HR. KEPT PT COMFORTABLE IN BED. SAFETY PRECAUTION IN PLACE: BED IN LOWEST LOCKED POSITION, SIDE RAILS UP X2, CALL LIGHT WITHIN REACH. WILL ENDORSE TO AM SHIFT FOR YOVANI.
[2023-04-20 07:30] VITALS: BP 125/61; TEMP 94.4; O2SAT 97
--- NOTE | 2023-04-20 07:38 | NUR ---
RN OPENING NOTE PATIENT ASLEEP IN BED, RESTING. APPEARS COMFORTABLE, ROUSABLE BY NAME. A/OX3. NO SIGN SYMPTOM OF PAIN NOTED AT THIS TIME. ON ROOM AIR, BREATHING EVEN AND NON LABORED. NOT IN RESPIRATORY DISTRESS. WITH IV ACCESS ON LEFT UPPER ARM, MIDLINE G18, WITH NS @75ML/HR INFUSING WELL. FALL AND SAFETY MEASURES IN PLACE, BED IN LOW AND LOCKED POSITION, CALL LIGHT AND TABLE WITHIN EASY REACH. SIDE RAILS UPX2. REMINDED TO BE NPO FOR EGD PROCEDURE. WILL CONTINUE TO MONITOR.
[2023-04-20] MEDS: DOCUSATE SODIUM 100 MG CAPSULE PO SCH (09:00)
[2023-04-20] MEDS: METOPROLOL TARTRATE 25 MG TABLET PO SCH ×2 (09:00→17:00)
[2023-04-20] MEDS: ENSURE ENLIVE 237 ML LIQUID (VANILLA) PO SCH (09:00)
[2023-04-20] MEDS: ZINC OXIDE 30 GM TUBE TP SCH (09:36)
--- NOTE | 2023-04-20 10:40 | NUR ---
RN NOTE PATIENT TO RAD FOR EGD. CONSENTS SIGNED, PREOP CHECKLIST DONE. TRANSFERRED VIA GURNEY ACCOMPANIED RAD STAFF.
[2023-04-20] MEDS ORDERED: ANESTHESIA TRAY IN PYXIS 1 EA TRAY MC ONE (10:50)
--- NOTE | 2023-04-20 12:10 | NUR ---
RN NOTE PATIENT RETURNED FROM EGD VIA BED TRANSFER ACCOMPANIED BY RN. A/OX4. WILL CONTINUE TO MONITOR.
[2023-04-20] MEDS: CIPROFLOXACIN HCL 500 MG TABLET PO SCH ×2 (12:55→21:00)
[2023-04-20] MEDS: PANTOPRAZOLE 40 MG TABLET.DR PO SCH (12:56)
[2023-04-20] MEDS: ESCITALOPRAM OXALATE (10 MG) 10 MG TABLET PO SCH (12:56)
[2023-04-20] MEDS: METOCLOPRAMIDE HCL 10 MG TABLET PO SCH ×3 (12:57→17:32)
[2023-04-20] MEDS: SODIUM BICARBONATE 650 MG TABLET PO SCH ×2 (12:57→17:00)
[2023-04-20] MEDS: MULTIVIT W/MINERALS 1 TAB TABLET PO SCH (12:58)
[2023-04-20] MEDS: CHOLECALCIFEROL (VITAMIN D 3) 400 UNIT TABLET PO SCH (12:58)
[2023-04-20] MEDS: NITROFURANTOIN/MONOHYDRATE MACROCRYSTALS 100 MG CAPSULE PO SCH ×2 (12:59→21:00)
--- NOTE | 2023-04-20 16:22 | NUR ---
[facility] ATTACHED TO CHART.
--- NOTE | 2023-04-20 17:32 | NUR ---
RN NOTE PATIENT REFUSED 1700 MEDICATIONS, ONLY TOOK METOCLOPRAMIDE.
--- NOTE | 2023-04-20 18:12 | NUR ---
RN NOTE PATIENT REFUSING TO BE HOOKED BACK ONTO IV FLUID. VERBALIZED "I DON'T NEED IT" AND THAT IT IS EASIER TO AMBULATE WITHOUT.
--- NOTE | 2023-04-20 18:50 | NUR ---
RN CLOSING NOTE PATIENT AWAKE IN BED, RESTING, APPEARS COMFORTABLE. A/OX4. NO S/SX OF PAIN NOTED AT THIS TIME. ON ROOM AIR, BREATHING EVEN AND UNLABORED, NOT IN RESPIRATORY DISTRESS. WITH IV ACCESS ON LEFT ARM MIDLINE G18. REFUSING TO BE HOIOKED TO NS @100MLS/HR FOR NOW. FALL AND SAFETY MEASURES IN PLACE. BED IN LOW AND LOCKED POSITION. CALL LIGHT AND TABLE WITHIN REACH. SIDE RAILS UP X2. SCHEDULED MEDICATIONS GIVEN. PATIENT REPOSITIONED PER PROTOCOL. ENCOURAGED AMBULATION. ALL NEEDS ATTENDED AND ANTICIPATED. WILL ENDORSE TO CCNA NURSE.
[2023-04-20 20:00] VITALS: BP 125/71; TEMP 98.5; O2SAT 96
--- NOTE | 2023-04-20 22:26 | NUR ---
MS/TELE/RN PATIENT REFUSED HS ANTIBIOTICS, AND REFUSED ALSO IVF. EXPLAINED THE IMPORTANCE OF THE ANTIBIOTIC, VERBALIZED UNDERSTANDING, BUT STILL REFUSED.
--- NOTE | 2023-04-21 05:32 | NUR ---
MS/TELE/RN PATIENT REFUSED TO TAKE THE METRONIDAZOLE PO DUE AT 05:00, PER PATIENT SHE WILL TAKE IT AT 08:00.
--- NOTE | 2023-04-21 07:36 | NUR ---
RN OPENING NOTE PATIENT AWAKE IN BED, RESTING. APPEARS COMFORTABLE. AMBULATORY AND WALKING AROUND UNIT AT TIMES. A/OX3. NO SIGN SYMPTOM OF PAIN NOTED AT THIS TIME. ON ROOM AIR, BREATHING EVEN AND NON LABORED. NOT IN RESPIRATORY DISTRESS. WITH IV ACCESS ON LEFT UPPER ARM, MIDLINE G18. REFUSING TO BE HOOKED TO ORDERED IVF OF NS @75ML/HR. FALL AND SAFETY MEASURES IN PLACE, BED IN LOW AND LOCKED POSITION, CALL LIGHT AND TABLE WITHIN EASY REACH. SIDE RAILS UPX2. WILL CONTINUE TO MONITOR.
[2023-04-21 07:39] LABS: BASOPHILS # (AUTO) 0.1 K/uL (0.0-0.2); EOSINOPHILS % (AUTO) 5.5 % (0.0-6.0); HEMATOCRIT 32 % (33-45); HEMOGLOBIN 10.5 g/dL (11.5-14.8); LYMPHOCYTES # (AUTO) 0.8 K/uL (0.8-4.8); LYMPHOCYTES % (AUTO) 12.6 % (20.0-44.0); MEAN CORPUSCULAR HGB CONC 32 g/dl (31.0-36.0); MEAN CORPUSCULAR VOLUME 88 fL (82-100); MONOCYTES # (AUTO) 0.5 K/uL (0.1-1.30); MONOCYTES % (AUTO) 7.7 % (2.0-12.0); NEUTROPHILS # (AUTO) 4.7 K/uL (1.8-8.9); NEUTROPHILS % (AUTO) 73.2 % (43.0-81.0); PLATELET COUNT (AUTO) 192 K/uL (150-450); RED BLOOD CELL COUNT(AUTO) 3.67 MIL/uL (4.0-5.2); WHITE BLOOD COUNT (AUTO) 6.4 K/uL (4.3-11.0)
[2023-04-21] MEDS: IV NS 0.9% 1,000 ML IV SCH ×2 (07:51→19:53)
[2023-04-21 08:01] LABS: CALCIUM, SERUM 8.8 mg/dL (8.5-10.1); CREATININE 1.2 mg/dL (0.6-1.3); MAGNESIUM 1.9 mg/dL (1.8-2.4); PHOSPHORUS 2.9 mg/dL (2.5-4.9); POTASSIUM 3.7 mmol/L (3.5-5.1)
[2023-04-21] MEDS: NITROFURANTOIN/MONOHYDRATE MACROCRYSTALS 100 MG CAPSULE PO SCH ×2 (08:20→20:03)
[2023-04-21] MEDS: METRONIDAZOLE 500 MG TABLET PO SCH ×3 (08:20→20:03)
[2023-04-21] MEDS: CIPROFLOXACIN HCL 500 MG TABLET PO SCH ×2 (08:20→20:03)
[2023-04-21] MEDS: ESCITALOPRAM OXALATE (10 MG) 10 MG TABLET PO SCH (08:21)
[2023-04-21] MEDS: ENSURE ENLIVE 237 ML LIQUID (VANILLA) PO SCH (08:22)
[2023-04-21] MEDS: DOCUSATE SODIUM 100 MG CAPSULE PO SCH (08:23)
[2023-04-21] MEDS: METOPROLOL TARTRATE 25 MG TABLET PO SCH ×2 (08:24→17:00)
[2023-04-21] MEDS: PANTOPRAZOLE 40 MG TABLET.DR PO SCH (08:24)
[2023-04-21] MEDS: SODIUM BICARBONATE 650 MG TABLET PO SCH ×2 (08:25→17:00)
[2023-04-21] MEDS: CHOLECALCIFEROL (VITAMIN D 3) 400 UNIT TABLET PO SCH (08:25)
[2023-04-21] MEDS: MULTIVIT W/MINERALS 1 TAB TABLET PO SCH (08:25)
[2023-04-21] MEDS: METOCLOPRAMIDE HCL 10 MG TABLET PO SCH ×3 (08:25→17:00)
[2023-04-21] MEDS: ZINC OXIDE 30 GM TUBE TP SCH (08:28)
--- NOTE | 2023-04-21 09:00 | NUR ---
RN NOTE PATIENT REFUSED SEVERAL MEDICATIONS FROM AM MEDS. ONLY TOOK METRONIDAZOLE, CIPROFLOXACIN, NITROFURANTOIN, PANTOPRAZOLE, AND ESCITALOPRAM. SEE EMAR. WILL CONTINUE TO MONITOR.
[2023-04-21 10:17] VITALS: BP 128/72; TEMP 97.9; O2SAT 99
[2023-04-21] MEDS ORDERED: ALPRAZOLAM 0.25 MG TABLET PO PRN (11:30)
--- NOTE | 2023-04-21 16:18 | NUR ---
RN NOTE PATIENT'S POA SPOKE WITH NURSE TO SAY THEY PREFER TO BE DISCHARGED AND THEN READMITTED TO [facility], IF THE SURGERY NEEDS TO BE DONE THERE ANYWAY. WILL ENDORSE TO TREASURY SPECIALIST NURSE, ALSO WRITTEN IN REPORT SHEET.
[2023-04-21 16:41] VITALS: BP 117/74; TEMP 98.1; O2SAT 96
[2023-04-21 16:52] VITALS: BP 124/63; TEMP 98.3; O2SAT 95
--- NOTE | 2023-04-21 18:34 | NUR ---
RN CLOSING NOTE PATIENT AWAKE IN BED, RESTING, APPEARS COMFORTABLE. A/OX4. NO S/SX OF PAIN NOTED AT THIS TIME. ON ROOM AIR, BREATHING EVEN AND UNLABORED, NOT IN RESPIRATORY DISTRESS. WITH IV ACCESS ON LEFT ARM MIDLINE G18. REFUSING TO BE HOOKED TO NS @100MLS/HR FOR NOW. FALL AND SAFETY MEASURES IN PLACE. BED IN LOW AND LOCKED POSITION. CALL LIGHT AND TABLE WITHIN REACH. SIDE RAILS UP X2. SCHEDULED MEDICATIONS GIVEN, SOME REFUSED BY PATIENT, SEE NOTES AND MAR. ENCOURAGED AMBULATION. ALL NEEDS ATTENDED AND ANTICIPATED. WILL ENDORSE TO MEDIA THEORIST AND AUTHOR OF NURSE.
--- NOTE | 2023-04-21 19:00 | NUR ---
MS RN OPENING NOTE PATIENT IS RESTING IN BED. SHE IS ON RA, TOLERATED WELL. NO S/S OF DISTRESS OR SOB. PT IS AWAKE, ALERT AND ORIENTED, AO X 4. SHE HAS IV ACCESS AT HER L UA, MIDLINE, #18G; SL. PT IS SUPPOSED TO BE INFUSING NS @75 ML / HR; PT REFUSED IV FLUID INFUSION. IV SITE IS PATENT AND INTACT. PT DENIES OF HAVING PAIN AT THIS MOMENT. PT IS ON FULL LIQUID DIET NOW, TOLERATED WELL. SAFETY MEASURES ARE IN PLACED: BED IN LOWEST AND LOCKED POSITION; SIDE RAILS UP X 2; CALL LIGHT AND TABLE ARE IN REACH. WILL CONTINUE MONITORING THE PT AND PROVIDE THE CARE PT NEEDS.
[2023-04-21 20:00] VITALS: BP 130/71; TEMP 98.9; O2SAT 99
[2023-04-22] MEDS: METRONIDAZOLE 500 MG TABLET PO SCH ×3 (05:00→21:45)
[2023-04-22] MEDS: ONDANSETRON HCL/PF 4 MG/2 ML VIAL IVP PRN (05:07)
--- NOTE | 2023-04-22 05:09 | NUR ---
MS RN NOTE PT REFUSED PO MEDICATION FLAGYL, SCHEDULED AT 0500. RETURNED THE UNOPENED MEDICATION TO THE [facility].
--- NOTE | 2023-04-22 05:10 | NUR ---
MS RN NOTE PT STATED THAT SHE FELT NAUSEATED. PRN MEDICATION, ZOFRAN 4 MG, ADMINISTERED TO THE PT PER MD ORDER.
--- NOTE | 2023-04-22 06:37 | NUR ---
MS RN CLOSING NOTE PATIENT IS RESTING IN BED. SHE IS ON RA, TOLERATED WELL. NO S/S OF DISTRESS OR SOB. PT IS AWAKE, ALERT AND ORIENTED, AO X 4. SHE HAS IV ACCESS AT HER L UA, MIDLINE, #18G; SL. PT IS SUPPOSED TO BE INFUSING NS @75 ML / HR; PT REFUSED IV FLUID INFUSION. IV SITE IS PATENT AND INTACT. PT DENIES OF HAVING PAIN AT THIS MOMENT. PT IS ON FULL LIQUID DIET NOW, TOLERATED WELL. SAFETY MEASURES ARE IN PLACED: BED IN LOWEST AND LOCKED POSITION; SIDE RAILS UP X 2; CALL LIGHT AND TABLE ARE IN REACH. WILL ENDORSE NEXT SHIFT NURSE FOR CONTINUING PT CARE. IN ADDITION, WILL ENDORSE DAY SHIFT NURSE TO FOLLOW UP WITH THE MEDICAL RECORD FOR HERNIA REPAIR; REQUEST WAS MADE TO TERRENCE ABDI (DAY SHIFT RN SENT THE REQUEST ON 04/21/2023).
[2023-04-22 07:24] LABS: BASOPHILS % (AUTO) 0.9 % (0.0-2.0); EOSINOPHILS % (AUTO) 5.2 % (0.0-6.0); HEMATOCRIT 29 % (33-45); HEMOGLOBIN 9.7 g/dL (11.5-14.8); LYMPHOCYTES # (AUTO) 0.6 K/uL (0.8-4.8); LYMPHOCYTES % (AUTO) 12.1 % (20.0-44.0); MEAN CORPUSCULAR HGB CONC 34 g/dl (31.0-36.0); MEAN CORPUSCULAR VOLUME 86 fL (82-100); MONOCYTES # (AUTO) 0.7 K/uL (0.1-1.30); MONOCYTES % (AUTO) 14.5 % (2.0-12.0); NEUTROPHILS # (AUTO) 3.1 K/uL (1.8-8.9); NEUTROPHILS % (AUTO) 67.3 % (43.0-81.0); PLATELET COUNT (AUTO) 190 K/uL (150-450); RED BLOOD CELL COUNT(AUTO) 3.36 MIL/uL (4.0-5.2); WHITE BLOOD COUNT (AUTO) 4.6 K/uL (4.3-11.0)
[2023-04-22 07:30] VITALS: BP 140/56; TEMP 98.1; O2SAT 96
--- NOTE | 2023-04-22 07:30 | NUR ---
MS RN OPENING NOTE PATIENT AWAKE IN BED, A/OX4. ON RA, TOLERATING WELL. NO S/S OF DISTRESS OR SOB NOTED SHE HAS IV ACCESS AT HER L UA, MIDLINE, #18G; SL. PT IS SUPPOSED TO BE INFUSING NS @75 ML / HR; PT REFUSED IV FLUID INFUSION. IV SITE IS PATENT AND INTACT. SAFETY MEASURES ARE IN PLACED: BED IN LOWEST AND LOCKED POSITION; SIDE RAILS UP X 2; CALL LIGHT AND TABLE ARE IN REACH. WILL CONTINUE TO MONITOR.
[2023-04-22 08:05] LABS: CALCIUM, SERUM 8.6 mg/dL (8.5-10.1); CREATININE 1.3 mg/dL (0.6-1.3); MAGNESIUM 1.7 mg/dL (1.8-2.4); PHOSPHORUS 2.8 mg/dL (2.5-4.9); POTASSIUM 3.6 mmol/L (3.5-5.1)
[2023-04-22] MEDS: MULTIVIT W/MINERALS 1 TAB TABLET PO SCH ×2 (08:54→09:00)
[2023-04-22] MEDS: CHOLECALCIFEROL (VITAMIN D 3) 400 UNIT TABLET PO SCH ×2 (08:54→09:00)
[2023-04-22] MEDS: DOCUSATE SODIUM 100 MG CAPSULE PO SCH ×2 (08:54→09:00)
[2023-04-22] MEDS: PANTOPRAZOLE 40 MG TABLET.DR PO SCH ×2 (08:54→09:00)
[2023-04-22] MEDS: ESCITALOPRAM OXALATE (10 MG) 10 MG TABLET PO SCH ×2 (08:54→09:00)
[2023-04-22] MEDS: NITROFURANTOIN/MONOHYDRATE MACROCRYSTALS 100 MG CAPSULE PO SCH ×3 (08:54→21:45)
[2023-04-22] MEDS: METOPROLOL TARTRATE 25 MG TABLET PO SCH ×3 (08:58→17:00)
[2023-04-22] MEDS: CIPROFLOXACIN HCL 500 MG TABLET PO SCH ×3 (08:58→21:45)
[2023-04-22] MEDS: METOCLOPRAMIDE HCL 10 MG TABLET PO SCH ×4 (08:59→17:58)
[2023-04-22] MEDS: ZINC OXIDE 30 GM TUBE TP SCH (09:00)
[2023-04-22] MEDS: SODIUM BICARBONATE 650 MG TABLET PO SCH ×3 (09:00→17:00)
[2023-04-22] MEDS: ENSURE ENLIVE 237 ML LIQUID (VANILLA) PO SCH (09:03)
[2023-04-22] MEDS: IV NS 0.9% 1,000 ML IV SCH ×3 (09:10→22:30)
[2023-04-22] MEDS ORDERED: MAGNESIUM OXIDE 400 MG TABLET PO ONE (11:00)
--- NOTE | 2023-04-22 11:16 | NUR ---
MEDICAL RECORDS MADE A FOLLOW UP TO MARINA FROM MEDICAL RECORDS SECTION AT [facility] TO OBTAIN PATIENT'S PAST MEDICAL RECORDS. PER HER, SHE WILL GONNA TAKE CARE OF IT. WILL FOLLOW UP AGAIN.
--- NOTE | 2023-04-22 13:00 | NUR ---
RN NOTE CALLED AGAIN [facility] FOR MED RECORDS, RE-FAXED REQUEST FORM, WILL MONITOR.
[2023-04-22 16:00] VITALS: BP 130/54; TEMP 98; O2SAT 100
--- NOTE | 2023-04-22 16:00 | NUR ---
RN NOTE RECEIVED MEDICAL RECORDS FROM [facility], HOWEVER, NO SURGICAL NOTES NOTED. CALLED THEM AGAIN TO FAX US SURGICAL RECORDS. WAITS RESPONSE. MEDICAL RECORD HISTORY RELAYED TO DR. COLÓN.
--- NOTE | 2023-04-22 18:36 | NUR ---
RN CLOSING NOTES PATIENT AWAKE IN BED, A/OX4. ON RA, TOLERATING WELL. NO S/S OF DISTRESS OR SOB NOTED SHE HAS IV ACCESS AT HER L UA, MIDLINE, #18G; SL. PT IS SUPPOSED TO BE INFUSING NS @75 ML / HR; PT REFUSED IV FLUID INFUSION. IV SITE IS PATENT AND INTACT. ALL NEEDS ATTENDED, REFUSED ALL MEDICATIONS. LUZMA VEGA MADE AWARE. AWAITS MEDICAL RECORDS FROM [facility]. SAFETY MEASURES ARE IN PLACED: BED IN LOWEST AND LOCKED POSITION; SIDE RAILS UP X 2; CALL LIGHT AND TABLE ARE IN REACH. ENDORSE TO INCOMING SHIFT.
--- NOTE | 2023-04-22 19:58 | NUR ---
RN OPENING NOTES RECEIVED PATIENT AWAKE IN BED. A/O X4. ABLE TO MAKE NEEDS KNOWN. PT STATED SHE HAS DIFFICULTY OF BREATHING BUT NO SIGNS OF RESPIRATORY DISTRESS. REFUSED 2L OF O2 VIA NC WHEN OFFERED. BEDREST INSTRUCTED .PT APPEARS TO BE COMFORTABLE AND SHOWING NO SIGNS OF DISTRESS. BREATHING EVEN AND UNLABORED. NO SKIN ISSUES. NO PAIN NOTED AT THIS TIME. IV ACCESS AT [facility] #18G. SAFETY MEASURES IN PLACE. CALL LIGHT AND TRAY TABLE WITHIN REACH. BED IN LOW AND LOCKED POSITION. SIDE RAILS UP X2. WILL CONTINUE TO MONITOR.
[2023-04-22 20:00] VITALS: BP 140/79; TEMP 98.9; O2SAT 100
[2023-04-22] MEDS ORDERED: MENTHOL/CETYLPYRD (CEPACOL) 1 LOZ LOZENGE PO PRN (22:30)
--- NOTE | 2023-04-22 23:28 | NUR ---
MSRN REFUSED IVF FOR NOW.
[2023-04-23] MEDS ORDERED: MENTHOL/CETYLPYRD (CEPACOL) 1 LOZ LOZENGE ONE (00:02)
--- NOTE | 2023-04-23 04:34 | NUR ---
RN NOTES PATIENT COMPLAINED OF SORE THROAT AND WAS OFFERED CEPHACOL BUT STILL REFUSED.
[2023-04-23] MEDS: METRONIDAZOLE 500 MG TABLET PO SCH ×2 (05:00→10:21)
--- NOTE | 2023-04-23 05:27 | NUR ---
RN NOTES PATIENT REFUSED [id number]
[2023-04-23 06:08] LABS: EOSINOPHILS % (AUTO) 4.5 % (0.0-6.0); HEMATOCRIT 30 % (33-45); HEMOGLOBIN 9.9 g/dL (11.5-14.8); LYMPHOCYTES # (AUTO) 0.6 K/uL (0.8-4.8); LYMPHOCYTES % (AUTO) 14.6 % (20.0-44.0); MEAN CORPUSCULAR HGB CONC 33 g/dl (31.0-36.0); MEAN CORPUSCULAR VOLUME 87 fL (82-100); MONOCYTES # (AUTO) 0.8 K/uL (0.1-1.30); MONOCYTES % (AUTO) 17.9 % (2.0-12.0); NEUTROPHILS # (AUTO) 2.6 K/uL (1.8-8.9); PLATELET COUNT (AUTO) 197 K/uL (150-450); RED BLOOD CELL COUNT(AUTO) 3.48 MIL/uL (4.0-5.2); WHITE BLOOD COUNT (AUTO) 4.2 K/uL (4.3-11.0)
--- NOTE | 2023-04-23 06:19 | NUR ---
RN CLOSING NOTES PATIENT SLEEPING IN BED BUT EASY TO AROUSE, A/OX4. ON RA, TOLERATING WELL. ABLE TO MAKE NEEDS KNOWN. NO S/S OF DISTRESS OR SOB NOTED SHE HAS IV ACCESS AT HER L UA, MIDLINE, #18G; SL. PT IS SUPPOSED TO BE INFUSING NS @75 ML / HR; PT REFUSED IV FLUID INFUSION AND AM MEDS. IV SITE IS PATENT AND INTACT. ALL NEEDS ATTENDED, AWAITS MEDICAL RECORDS FROM [facility]. SAFETY MEASURES ARE IN PLACED BED IN LOWEST AND LOCKED POSITION; SIDE RAILS UP X 2; CALL LIGHT AND TABLE ARE IN REACH. WILL ENDORSE TO INCOMING SHIFT.
[2023-04-23 06:30] LABS: CALCIUM, SERUM 8.4 mg/dL (8.5-10.1); CARBON DIOXIDE 23 mmol/L (21-32); CHLORIDE 108 mmol/L (98-107); CREATININE 1.4 mg/dL (0.6-1.3); GLUCOSE 94 mg/dL (74-106); MAGNESIUM 1.6 mg/dL (1.8-2.4); PHOSPHORUS 3.1 mg/dL (2.5-4.9); POTASSIUM 3.7 mmol/L (3.5-5.1); SODIUM SERUM 141 mmol/L (136-145); UREA NITROGEN, BLOOD 12 mg/dL (7-18)
[2023-04-23 07:44] VITALS: BP 133/64; TEMP 98.9; O2SAT 99
--- NOTE | 2023-04-23 07:58 | NUR ---
MS RN OPENING NOTE (DAY SHIFT) PATIENT AWAKE IN BED, A/O X 4. ON RA, TOLERATING WELL. ANXIOUS AND EAGER TO GO HOME. NO PHYSICAL DISTRESS NOR SOB NOTED. PATIENT HAS IV ACCESS AT HER L UA, MIDLINE, #18G, INFUSING WELL NS @75 ML / HR. IV SITE IS PATENT AND INTACT. SAFETY MEASURES ARE IN PLACE: BED IN LOWEST AND LOCKED POSITION; SIDE RAILS UP X 2; CALL LIGHT AND TABLE ARE IN REACH. WILL CONTINUE TO MONITOR AND CARE FOR PATIENT PER MD's POC.
[2023-04-23] MEDS ORDERED: IV NS 0.9% 1,000 ML IV PRN (08:50)
[2023-04-23 09:00] VITALS: BP 133/64
[2023-04-23] MEDS: MULTIVIT W/MINERALS 1 TAB TABLET PO SCH ×2 (09:00→10:19)
[2023-04-23] MEDS: ESCITALOPRAM OXALATE (10 MG) 10 MG TABLET PO SCH ×2 (09:00→10:15)
[2023-04-23] MEDS: DOCUSATE SODIUM 100 MG CAPSULE PO SCH ×2 (09:00→10:15)
[2023-04-23] MEDS: METOPROLOL TARTRATE 25 MG TABLET PO SCH ×2 (09:00→10:16)
[2023-04-23] MEDS: METOCLOPRAMIDE HCL 10 MG TABLET PO SCH ×2 (09:00→13:00)
[2023-04-23 09:15] LABS: LYMPHOCYTES % (MANUAL) 6 % (16-48); MONOCYTES % (MANUAL) 12 % (0-11.0); NEUTROPHILS % (MANUAL) 82 (42-76)
[2023-04-23] MEDS: CIPROFLOXACIN HCL 500 MG TABLET PO SCH (10:14)
[2023-04-23] MEDS: ENSURE ENLIVE 237 ML LIQUID (VANILLA) PO SCH (10:15)
[2023-04-23] MEDS: PANTOPRAZOLE 40 MG TABLET.DR PO SCH (10:17)
[2023-04-23] MEDS: NITROFURANTOIN/MONOHYDRATE MACROCRYSTALS 100 MG CAPSULE PO SCH (10:17)
[2023-04-23] MEDS: SODIUM BICARBONATE 650 MG TABLET PO SCH (10:19)
[2023-04-23] MEDS: CHOLECALCIFEROL (VITAMIN D 3) 400 UNIT TABLET PO SCH (10:21)
[2023-04-23] MEDS: ZINC OXIDE 30 GM TUBE TP SCH (10:29)
[2023-04-23] MEDS: MAGNESIUM OXIDE 400 MG TABLET PO ONE ×2 (12:36→12:42)
--- NOTE | 2023-04-23 13:00 | NUR ---
HAND-OFF REPORT Gave report to nurse Tiffany to take over care of patient.
--- NOTE | 2023-04-23 17:00 | NUR ---
CONCESSION MANAGER NOTES PATIENT WAS SEEN BY DR LOPEZ , MEDICALLY CLEARED AND FOR DISCHARGE TO HOME , DISCHARGE PAPER WERE PREPARED AND D/C INSTRUCTIONS PROVIDED REGARDING DIET , MEDICATIONS TO CONTINUE , FOLLOW UP WITH PCP AND WHEN TO CALL 911 IN CASE OF EMERGENCY , PATIENT IS ALERT AND ORIENTED AND UNDERSTOOD INSTRUCTIONS PROVIDED , ALL BELONGINGS WERE TAKEN AND FORM WAS SIGNED , TRANSPORTATION WAS PROVIDED BY CAREGIVER , IV ACCESS AND ID BADGE WAS REMOVED , PATIENT IS AMBULATORY USING THE FOUR WHEELED WALKER , LEFT IN A STABLE CONDITION AROUND [id number] WITH CAREGIVER
== END 2023-04-23 16:15 | disposition home or self-care (01) | DRG 391 ==
LOC: ER 22:36 → MED 04-14 03:22
PROVIDERS: ADMIT Nurse Practitioner Acute Care; ATTEND Internal Medicine
PROC: 05H633Z Insertion of Infusion Device into Left Subclavian Vein, Percutaneous Approach (ICD-10-PCS; 2023-04-17)
PROC: B547ZZA Ultrasonography of Left Subclavian Vein, Guidance (ICD-10-PCS; 2023-04-17)
PROC: 0DB68ZX Excision of Stomach, Via Natural or Artificial Opening Endoscopic, Diagnostic (ICD-10-PCS; principal; 2023-04-20)
DX: K57.32 Diverticulitis of large intestine without perforation or abscess without bleeding (principal); N17.0 Acute kidney failure with tubular necrosis; N39.0 Urinary tract infection, site not specified; N20.1 Calculus of ureter; K44.9 Diaphragmatic hernia without obstruction or gangrene; K31.84 Gastroparesis; D63.8 Anemia in other chronic diseases classified elsewhere; F32.A Depression, unspecified; F41.0 Panic disorder [episodic paroxysmal anxiety]; Z87.440 Personal history of urinary (tract) infections; K31.7 Polyp of stomach and duodenum; R91.1 Solitary pulmonary nodule; B96.89 Other specified bacterial agents as the cause of diseases classified elsewhere; F41.9 Anxiety disorder, unspecified; Z98.890 Other specified postprocedural states; K31.89 Other diseases of stomach and duodenum; K59.00 Constipation, unspecified; I10 Essential (primary) hypertension; T50.8X5A Adverse effect of diagnostic agents, initial encounter; Y92.89 Other specified places as the place of occurrence of the external cause
CPT/HCPCS: 36415; 71260-TC; 80048-TC; 80053-TC; 80076-TC; 81001; 83690-TC; 83735-TC; 84100-TC; 85025-TC; 87081-TC; 87086-TC; 88305-TC; 88313-TC; 88342; 97112-TC; 97116-TC; A4223; C9113; G0378; J0696; J1885; J2060; J2405; J2543; J2704; J3490; J7030; J7060; J8597